=== PATIENT | male | born 1965 | race Caucasian/White ===

== ENCOUNTER → 2021-08-01 | Day surgery (SDC) | payer OTHER ==
[~2021-08-01] VITALS: Ht 170.2 cm; Wt 75.9 kg
[~2021-08-01] MED LIST: AMIT10TA PO; BUSP5TAB PO; IV RINGERS,LACTATED 1000ML 1,000 ML IV ONE; PROPOFOL 10 MG/ML (20ML) VIAL. IV ONE
[2021-08-01 06:34] VITALS: BP 142/90
[2021-08-01 08:39] VITALS: BP 144/77
--- NOTE | 2021-08-01 08:54 | CONS ---
DATE OF CONSULTATION: 08/01/2021 UPDATED HISTORY AND PHYSICAL REASON FOR CONSULTATION: History of colonic polyps. HISTORY OF PRESENT ILLNESS: A 55-year-old male whose past medical history is significant for colon polyps, gastroesophageal reflux disease, is seen for interval colon exam. Last was done in 2014. He has had daily bowel movements without constipation or diarrhea. He has had 2 episodes of bleeding in October earlier this year. Weight and appetite have been stable and he is otherwise without additional complaints. PAST MEDICAL HISTORY: History of colonic polyps, GERD, anxiety. ALLERGIES: None. MEDICATIONS: Include amitriptyline and BuSpar. FAMILY HISTORY: Significant for breast cancer with mother, diabetes with grandmother, AL with mother, hypertension with grandmother. SOCIAL HISTORY: He is a former smoker, former drinker. PAST SURGICAL HISTORY: Significant for femur fracture repair. REVIEW OF SYSTEMS: As per records. PHYSICAL EXAMINATION: GENERAL: Reveals a well-nourished, well-developed male who is alert, cooperative, in no acute distress. VITAL SIGNS: Temp 98.2, pulse 84, respiratory rate 14. LUNGS: Clear. CARDIOVASCULAR: Reveals an S1, S2, without S3, S4 or appreciable murmur. ABDOMEN: Reveals a soft abdomen, normal bowel sounds, without appreciable hepatosplenomegaly. EXTREMITIES: Reveals no cyanosis, clubbing or edema. IMPRESSION AND PLAN: History of colonic polyps. Surveillance exam is recommended at this time. Risks and benefits were discussed with the patient including risk of hemorrhage and perforation and he is willing to proceed. GHADA ALEJO: Ronnie TID: [id number]
--- NOTE | 2021-08-05 11:10 | PATHOLOGY ---
[facility] Accession Number: [id number] . 01 Material submitted: . sigmoid colon - SIGMOID POLYP BIOPSY . 01 Clinical history: . HX POLYPS, RECTAL BLEED COLONOSCOPY . 02 Diagnosis: Large bowel "sigmoid polyp biopsy": - Hyperplastic polyp; negative for dysplasia and malignancy. ([facility]; 08/04/2021) [facility] 08/04/2021 1751 Local . 02 Electronically signed: . Miguel Azul MD, Pathologist NPI- [id number] . 01 Gross description: . Received in formalin labeled "Lucille, Bc, sigmoid polyp BX" are 2 del angel-brown soft tissue fragments measuring in aggregate 0.6 x 0.3 x 0.1 cm. The specimen is submitted entirely in A1. ([facility]; 08/03/2021) [facility] 08/03/2021 0843 Local . 02 Pathologist provided ICD-10: K63.5 . 02 CPT . 806287 Specimen Comment: A courtesy copy of this report has been sent to [phone] Specimen Comment: Report sent to Specimen Comment: A duplicate report has been generated due to demographic updates. Performed at: 01 [facility] [address] [facility] [address], [place] [id number] MD Brennen Wetzel MD Phone: [phone] Performed at: 02 [facility] [address] [id number] MD Neil Zuniga MD Phone: [phone]
== END | disposition home or self-care (01) ==
LOC: ENDOS 06:10 → EEVIPCON 07:30
PROVIDERS: ATTEND Internal Medicine Gastroenterology
DX: Z12.11 Encounter for screening for malignant neoplasm of colon (principal); K64.0 First degree hemorrhoids; K63.5 Polyp of colon; K63.89 Other specified diseases of intestine; K21.9 Gastro-esophageal reflux disease without esophagitis; F41.9 Anxiety disorder, unspecified; F32.9 Major depressive disorder, single episode, unspecified; Z86.010 Personal history of colon polyps; Z87.891 Personal history of nicotine dependence; Z79.899 Other long term (current) drug therapy; Z98.890 Other specified postprocedural states; Z20.822 Contact with and (suspected) exposure to COVID-19
CPT/HCPCS: 45380; 87426; 88305; J2704